=== PATIENT | female | born 1970 ===

== ENCOUNTER 2021-02-11 06:05 | Day surgery (SDC) | payer OTHER ==
[~2021-02-11 06:05] MED LIST: PROGESTERONE200 MG PO
== END 2021-02-11 13:00 | disposition home or self-care (01) ==
LOC: CIR.AMB 06:05
PROVIDERS: ATTEND Obstetrics & Gynecology
DX: N84.0 Polyp of corpus uteri (principal); D25.0 Submucous leiomyoma of uterus; Z20.822 Contact with and (suspected) exposure to COVID-19